=== PATIENT | female | born 1970 | race Caucasian/White ===

== ENCOUNTER 2017-08-11 04:10 | Inpatient (IN) | payer SELFPAY ==
[~2017-08-11] VITALS: Ht 160 cm; Wt 98.5 kg
[2017-08-11] MEDS ORDERED: ONCE DAILY1 EACH PO (08:34)
[2017-08-11 09:35] VITALS: BP 139/94
[2017-08-11 16:22] VITALS: BP 119/80
[2017-08-12 07:52] VITALS: BP 116/74
[2017-08-12 15:38] VITALS: BP 110/72
[2017-08-13 07:10] VITALS: BP 125/72
[2017-08-13 15:29] VITALS: BP 110/72
[2017-08-14 07:42] VITALS: BP 105/73
[2017-08-14] MEDS ORDERED: ESCITALOPRAM OX10 MG PO (09:27)
== END 2017-08-14 12:56 | disposition home or self-care (01) | DRG 885 ==
LOC: 1WEST 04:10 → ENRESERV 04:11 → 1WEST 04:11
DX: F32.1 Major depressive disorder, single episode, moderate (principal); F41.9 Anxiety disorder, unspecified; S60.912A Unspecified superficial injury of left wrist, initial encounter; X78.1XXA Intentional self-harm by knife, initial encounter; Z91.5 Personal history of self-harm; G47.00 Insomnia, unspecified; I25.10 Atherosclerotic heart disease of native coronary artery without angina pectoris; R63.4 Abnormal weight loss; E66.9 Obesity, unspecified; Z68.38 Body mass index [BMI] 38.0-38.9, adult
CPT/HCPCS: 90686; 97150 GO; 97165 GO